=== PATIENT | female | born 1950 | race Caucasian/White ===

== ENCOUNTER 2019-12-15 15:24 | Observation (INO) | payer MEDICARE, OTHER ==
[~2019-12-15] VITALS: Ht 162.6 cm; Wt 68.0 kg
--- NOTE | 2019-12-15 15:48 | Emergency Department Note ---
History of Present Illnes History of Present Illness Chief Complaint: Sepsis History of Present Illness This is a 69 year old female . Past Medical/Family History Physician Review I have reviewed the patient's past medical and family history. Any updates have been documented here. Review of Systems Review of Systems Constitutional: Reports weakness EENTM: Reports no symptoms Cardiovascular: Reports no symptoms Respiratory: Reports no symptoms Gastrointestinal: Reports diarrhea Genitourinary: Reports no symptoms Musculoskeletal: Reports no symptoms Integumentary: Reports no symptoms Neurological: Reports no symptoms Psychological: Reports no symptoms Endocrine: Reports no symptoms Hematological/Lymphatic: Reports no symptoms Physical Exam Related Data Allergies: Coded Allergies: Penicillins (Verified Allergy, Severe, 12/15/19) Sulfa (Sulfonamide Antibiotics) (Verified Allergy, Severe, 12/15/19) Physical Exam CONSTITUTIONAL HENT EYES NECK PULMONARY CARDIOVASCULAR GASTROINTESTINAL GENITOURINARY SKIN MUSCULOSKELETAL NEUROLOGICAL PSYCHOLOGICAL Results Laboratory Lab results reviewed: Yes Laboratory comments Laboratory Tests Test 12/15/19 18:49 12/15/19 15:55 Lactic Acid Level 1.9 mmol/L (0.5-2.0) White Blood Count 8.97 x10e3/uL (4.8-10.8) Red Blood Count 4.68 x10e6/uL (3.6-5.1) Hemoglobin 15.2 g/dL (12.0-16.0) Hematocrit 44.5 % (34.2-44.1) Mean Corpuscular Volume 95.1 fL (81-99) Mean Corpuscular Hemoglobin 32.5 pg (28-32) Mean Corpuscular Hemoglobin Concent 34.2 g/dL (31-35) Red Cell Distribution Width 13.9 % (11.7-14.4) Platelet Count 243 x10e3/uL (140-360) Neutrophils (%) (Auto) 75.0 % (38.7-80.0) Lymphocytes (%) (Auto) 17.9 % (18.0-39.1) Monocytes (%) (Auto) 6.0 % (4.4-11.3) Eosinophils (%) (Auto) 0.1 % (0.0-6.0) Basophils (%) (Auto) 0.2 % (0.0-1.0) Neutrophils # (Auto) 6.7 (2.1-6.9) Lymphocytes # (Auto) 1.6 (1.0-3.2) Monocytes # (Auto) 0.5 (0.2-0.8) Eosinophils # (Auto) 0.0 (0.0-0.4) Basophils # (Auto) 0.0 (0.0-0.1) Absolute Immature Granulocyte (auto 0.07 x10e3/uL (0-0.1) Sodium Level 131 mmol/L (136-145) Potassium Level 4.2 mmol/L (3.5-5.1) Chloride Level 97 mmol/L (98-107) Carbon Dioxide Level 18 mmol/L (22-29) Anion Gap 20.2 mmol/L (8-16) Blood Urea Nitrogen 34 mg/dL (7-26) Creatinine 2.27 mg/dL (0.57-1.11) Estimat Glomerular Filtration Rate 21 ML/MIN (60-) BUN/Creatinine Ratio 15 (6-25) Glucose Level 143 mg/dL (74-118) Calcium Level 10.0 mg/dL (8.4-10.2) Total Bilirubin 0.5 mg/dL (0.2-1.2) Aspartate Amino Transf (AST/SGOT) 11 IU/L (5-34) Alanine Aminotransferase (ALT/SGPT) 11 IU/L (0-55) Alkaline Phosphatase 56 IU/L (40-150) Creatine Kinase 13 IU/L (29-168) Creatine Kinase MB 1.00 ng/mL (0-5.0) Troponin I 0.003 ng/mL (0-0.300) Total Protein 7.1 g/dL (6.5-8.1) Albumin 3.2 g/dL (3.5-5.0) Globulin 3.9 g/dL (2.3-3.5) Albumin/Globulin Ratio 0.8 (0.8-2.0) Lipase 21 U/L (8-78) Ethyl Alcohol Level < 10.0 mg/dL (0.0-10.0) Imaging Imaging results reviewed: Yes Impressions [place] [id number] Patient Name: DESHAUN SHELLEY MR #: [id number] : 1950 Age/Sex: 69/F Req #: [id number] Adm Physician: Ordered by: SAMIA HOANG DO Report #: [id number] Location: ER Room/Bed: Procedure: [id number] DX/CHEST SINGLE (PORTABLE) Exam Date: 12/15/19 Exam Time: 1500 REPORT STATUS: Signed EXAM: CHEST SINGLE (PORTABLE) DATE: 12/15/2019 3:00 PM INDICATION: Sepsis, weakness COMPARISON: None FINDINGS: The trachea is midline. The lungs are symmetrically expanded without evidence for large focal consolidation, pneumothorax, or significant pleural effusion. The cardiomediastinal silhouette and pulmonary vasculature are within normal limits. Mild atherosclerotic calcifications are noted within the aortic arch. No acute osseous abnormality is identified. The surrounding soft tissues are unremarkable. IMPRESSION: No acute cardiopulmonary process identified. Signed by: Dr. Stef Bob MD on 12/15/2019 5:06 PM Dictated By: STEF BOB MD 05 Transcribed By: INÉS on 12/15/191705 COPY TO: SAMIA HOANG DO~ Assessment & Plan Assessment & Plan Final Impression: (1) Renal insufficiency (2) Hypotension SAMIA HOANG DO Dec 15, 2019 15:48
[2019-12-15 16:05] LABS: BASOPHILS % 0.2 % (0.0-1.0); EOSINOPHILS % 0.1 % (0.0-6.0); HEMATOCRIT 44.5 % (34.2-44.1); HEMOGLOBIN 15.2 g/dL (12.0-16.0); LYMPHOCYTES # (AUTO) 1.6 (1.0-3.2); LYMPHOCYTES % 17.9 % (18.0-39.1); MEAN CORPUSCULAR HEMOGLOBIN 32.5 pg (28-32); MEAN CORPUSCULAR HGB CONC 34.2 g/dL (31-35); MEAN CORPUSCULAR VOLUME 95.1 fL (81-99); MONOCYTES # (AUTO) 0.5 (0.2-0.8); NEUTROPHILS # (AUTO) 6.7 (2.1-6.9); PLATELET COUNT 243 x10e3/uL (140-360); RED BLOOD COUNT 4.68 x10e6/uL (3.6-5.1); RED CELL DISTRIBUTION WIDTH 13.9 % (11.7-14.4)
[2019-12-15 16:25] LABS: ALBUMIN 3.2 g/dL (3.5-5.0); ALBUMIN/GLOBULIN RATIO 0.8 (0.8-2.0); ANION GAP 20.2 mmol/L (8-16); CREATININE, SERUM 2.27 mg/dL (0.57-1.11); POTASSIUM 4.2 mmol/L (3.5-5.1)
[2019-12-15] MEDS ORDERED: LEVOFLOXACIN 750MG/D5W 150ML 150 ML IV SCH (16:30)
[2019-12-15 16:54] LABS: LIPASE 21 U/L (8-78)
--- NOTE | 2019-12-15 17:10 | Diagnostic Imaging Report ---
EXAM: CHEST SINGLE (PORTABLE) DATE: 12/15/2019 3:00 PM INDICATION: Sepsis, weakness COMPARISON: None FINDINGS: The trachea is midline. The lungs are symmetrically expanded without evidence for large focal consolidation, pneumothorax, or significant pleural effusion. The cardiomediastinal silhouette and pulmonary vasculature are within normal limits. Mild atherosclerotic calcifications are noted within the aortic arch. No acute osseous abnormality is identified. The surrounding soft tissues are unremarkable. IMPRESSION: No acute cardiopulmonary process identified. Signed by: Dr. Stef Bob MD on 12/15/2019 5:06 PM
[2019-12-15] MEDS ORDERED: SODIUM CHLORIDE 0.9% 1000ML 1,000 ML IV STA (18:44)
[2019-12-15] MEDS ORDERED: SODIUM CHLORIDE 0.9% 1000ML 1,000 ML ONE (18:51)
[2019-12-15] MEDS: SODIUM CHLORIDE 0.9% 1000ML 1,000 ML IV SCH (22:56)
[2019-12-16] VITALS (8 sets, daily range): BP systolic 98–109; BP diastolic 64–86
--- NOTE | 2019-12-16 03:55 | NUR ---
Patient received via stretcher from ER. AAO x 3. Patient had no complaints of pain. Respirations even and non-labored. Admission history obtained. Initial physical assessment performed. Safety measures implemented. IVF infusing at 125 cc/hr. Patient instructed to call for assistance when needed. Call light within reach.
[2019-12-16] MEDS: SODIUM CHLORIDE 0.9% 1000ML 1,000 ML IV SCH ×2 (05:38→14:37)
--- NOTE | 2019-12-16 06:00 | NUR ---
A message was left on Dr. Teague's voicemail regarding "Routine Consult". Awaiting call back.
[2019-12-16 06:54] LABS: BASOPHILS % 0.3 % (0.0-1.0); EOSINOPHILS % 0.1 % (0.0-6.0); HEMATOCRIT 38.9 % (34.2-44.1); HEMOGLOBIN 13.1 g/dL (12.0-16.0); LYMPHOCYTES # (AUTO) 0.9 (1.0-3.2); LYMPHOCYTES % 12.3 % (18.0-39.1); MEAN CORPUSCULAR HEMOGLOBIN 32.3 pg (28-32); MEAN CORPUSCULAR HGB CONC 33.7 g/dL (31-35); MEAN CORPUSCULAR VOLUME 95.8 fL (81-99); MONOCYTES # (AUTO) 0.8 (0.2-0.8); NEUTROPHILS # (AUTO) 5.8 (2.1-6.9); NEUTROPHILS % 76.8 % (38.7-80.0); PLATELET COUNT 188 x10e3/uL (140-360); RED BLOOD COUNT 4.06 x10e6/uL (3.6-5.1); RED CELL DISTRIBUTION WIDTH 13.6 % (11.7-14.4)
--- NOTE | 2019-12-16 07:00 | NUR ---
Walking rounds done. Patient resting comfortably. BSSR given to oncoming nurse regarding patient's status.
[2019-12-16 07:15] LABS: ALBUMIN 2.6 g/dL (3.5-5.0); ALBUMIN/GLOBULIN RATIO 0.9 (0.8-2.0); ANION GAP 15.2 mmol/L (8-16); CALCIUM 8.4 mg/dL (8.4-10.2); CREATININE, SERUM 1.45 mg/dL (0.57-1.11); POTASSIUM 3.2 mmol/L (3.5-5.1)
[2019-12-16] MEDS ORDERED: ONDANSETRON HCL INJ 2MG/ML 2ML 2 MG/ML VIAL IV PRN (08:30)
[2019-12-16] MEDS ORDERED: POTASSIUM BICARBONATE/CIT AC 20 MEQ TABLET.EFF PO SCH (09:30)
[2019-12-16] MEDS: FAMOTIDINE 20 MG/2 ML VIAL IV SCH (09:30)
[2019-12-16] MEDS ORDERED: LORAZEPAM INJ 2 MG/ML VIAL IV PRN (11:30)
[2019-12-16] MEDS ORDERED: ALBUTEROL/IPRATROPIUM 3 ML NEB NEB PRN (11:45)
[2019-12-16] MEDS ORDERED: DIATRIZOATE MEGL/DIATRIZOA SOD 30 ML BTL PO ONE (14:05)
[2019-12-16] MEDS ORDERED: POTASSIUM CHLORIDE 20MEQ/100ML 100 ML IV ONE (15:45)
--- NOTE | 2019-12-16 15:47 | NUR ---
Nutrition Intervention Note RD Recommendation(s) for Physician: -Recommend regular diet -Ensure Enlive BID for added nutrition -The patient meets criteria for unspecified SEVERE protein-calorie malnutrition. Plan of Care: RD following, monitoring for tolerance and adequacy, oral supplement recommendation Nutrition reason for involvement: Nutrition Risk Trigger (MST 3) RD Assessment (12/16/19) Pt is a 69 year old female admitted with hypotension and renal insufficiency. Pt reports a decreased appetite with < 50% meal intake over the past couple of weeks (< 1 month). Pt also stated she had unintentionally lost weight and had weighed 160 lbs 3 weeks ago. Pt currently weighs 150 lbs. This would be a 6% weight loss in ~ 1 month which is considered significant weight loss. No chewing/swallowing issues. Recommend Ensure Enlive BID for added nutrition. Will continue to monitor. Principal Problems/Diagnoses: hypotension, renal insufficiency PMH: COPD, emphysema, alcohol abuse, hysterectomy (provided by RN there is no H/P in chart at this time) GI: flat, soft, abdomen Skin: intact Labs: (12/16/19) Na 134, K 3.2, Cr 1.45, Glu 95, Ca 8.4 Meds: NaCl, levofloxacin, heparin, thiamine, folic acid, zofran, pepcid Ht: 64 inches Wt: 150 lbs BMI: 25.7 kg/m2 IBW: 120 lbs Malnutrition Evaluation (12/16/19) The patient meets criteria for unspecified SEVERE protein-calorie malnutrition. Energy intake: <50% of estimated energy requirements for >5 days Weight loss: >5% in 1 month Fat loss: no loss identified per observation Muscle loss: no loss identified per observation Supporting Evidence: Fluid accumulation: unable to evaluate Functional Status: unable to evaluate Nutrition Prescription (Diet Order): cardiac Estimated Nutritional Needs: 6825-8966 calories/day (18-20 kcal/kg CBW) 68-103 g protein/day (1-1.5 g pro/kg CBW) Diet Adequacy: Not meeting calorie needs, Not meeting protein needs Tolerance: Tolerance pending Diet Education Needs Assessment: Diet education is not indicated Nutrition Care Level: moderate Nutrition Diagnosis: Malnutrition related to h/o inadequate energy intake as evidenced by pt meeting < 50% of estimated energy needs for > 5 days and >5% weight loss in 1 month. Goal: Patient will meet 75-100% of estimated needs by follow up Progress: N/A Interventions: -General healthful diet, Commercial beverage, Recommended Modifications Monitoring/Evaluation: -Total energy intake, Total protein intake, , Liquid supplement, Weight change Signed: Sully Parks RD, LD
--- NOTE | 2019-12-16 16:14 | NUR ---
Transported patient for CT scan at this time.
--- NOTE | 2019-12-16 16:38 | NUR ---
Patient is back from CT.
[2019-12-16] MEDS: LACTATED RINGER'S 1,000 ML INJ SCH (16:54)
[2019-12-16 17:06] LABS: CLARITY,URINE CLEAR (CLEAR); COLOR,URINE YELLOW (YELLOW)
--- NOTE | 2019-12-16 17:06 | Diagnostic Imaging Report ---
EXAM: CT Abdomen and Pelvis WITHOUT intravenous contrast INDICATION: Abdominal pain COMPARISON: None. TECHNIQUE: Abdomen and pelvis were scanned utilizing a multidetector helical scanner from the lung base to the pubic symphysis without administration of IV contrast. Coronal and sagittal reformations were obtained. IV CONTRAST: None ORAL CONTRAST: Gastrografin COMPLICATIONS: None RADIATION DOSE: Total DLP: 705 mGy*cm Dose modulation, iterative reconstruction, and/or weight based adjustment of the mA/kV was utilized to reduce the radiation dose to as low as reasonably achievable. FINDINGS: LOWER THORAX: Centrilobular emphysema and increased peripheral interstitial opacities. HEPATOBILIARY: No focal liver lesion. Hypodensity adjacent to the falciform ligament and gallbladder fossa most likely represents focal fat. SPLEEN: No splenomegaly. PANCREAS: No focal masses or ductal dilatation. ADRENALS: Bilateral adrenal gland thickening without focal nodule. KIDNEYS/URETERS: No hydronephrosis, stones, or solid mass lesions. PELVIC ORGANS/BLADDER: Distended bladder. Status post hysterectomy. PERITONEUM / RETROPERITONEUM: No free air or fluid. LYMPH NODES: No lymphadenopathy. VESSELS: Heavy diffuse atherosclerotic calcifications of the nonaneurysmal abdominal aorta and major branches. GI TRACT: Diverticulosis without CT evidence of diverticulitis. No abnormal bowel thickening. No bowel obstruction. Normal appendix. BONES AND SOFT TISSUES: No acute osseous injury. IMPRESSION: No acute findings in the abdomen or pelvis to explain patient's abdominal pain. Diverticulosis without CT evidence of diverticulitis. Diffuse atherosclerotic calcifications including of the coronary arteries. Signed by: Bonnie Clement MD on 12/16/2019 5:03 PM
[2019-12-16 17:07] LABS: AMPHETAMINES SCREEN,URINE NEGATIVE (NEGATIVE); BENZODIAZEPINES SCREEN,URINE NEGATIVE (NEGATIVE); BILIRUBIN,URINE NEGATIVE (NEGATIVE); KETONES,URINE NEGATIVE (NEGATIVE); LEUKOCYTE ESTERASE ,URINE NEGATIVE (NEGATIVE); NITRITE,URINE NEGATIVE (NEGATIVE); PHENCYCLIDINE SCREEN,URINE NEGATIVE (NEGATIVE); PROTEIN,URINE DIPSTICK NEGATIVE (NEGATIVE); URINE UROBILINOGEN 0.2 mg/dL (0.2 - 1)
[2019-12-16 17:14] LABS: BACTERIA,URINE FEW /HPF; EPITHELIAL CELLS,URINE FEW /LPF; RENAL EPITHELIAL CELLS,URINE RARE
--- NOTE | 2019-12-16 18:44 | History and Physical ---
PRIMARY CARE PHYSICIAN: Tony Curiel MD CHIEF COMPLAINT: Generalized weakness HISTORY OF PRESENT ILLNESS: This is a 69-year-old female with past medical history of hypertension and COPD, who presented to the ED with complaints of generalized weakness, nausea, vomiting, diarrhea since 2-3 weeks. She denies any chest pain, fever, chills, dysuria, hematuria or melena. She denies any abdominal pain or palpitations. She reports has noticed that she gets winded even walking to her bathroom, she also reports losing greater than 10 to 20 pounds within the past month or two. She reports that she drinks rum and coke daily and smokes one pack of cigarettes a day. She reports last drink was about a week ago. Chest x-ray was negative for acute processes. Sodium was 131, creatinine 2.27 and BUN 34. She was started on IV fluids and admitted for further evaluation. PAST MEDICAL HISTORY: 1. Hypertension. 2. COPD. PAST SURGICAL HISTORY: Reports hysterectomy. FAMILY MEDICAL HISTORY: Reports father has diabetes and mother . SOCIAL HISTORY: She reports smoking 1 pack a day and drinks rum and coke on a daily basis, could not quantify how much and also uses marijuana occasionally. ALLERGIES: SHE IS ALLERGIC TO PENICILLIN AND SULFA DRUGS. REVIEW OF SYSTEMS: Twelve system reviewed and negative except as reported in HPI. PHYSICAL EXAMINATION: VITAL SIGNS: Temperature 97.7, pulse is 74, respirations 16, blood pressure 119/75, pulse ox 98% on room air. GENERAL: No acute distress. HEENT: Normocephalic, atraumatic. NECK: Supple. LUNGS: Clear to auscultation. CARDIOVASCULAR: Regular rate and rhythm. GI: Soft and nontender. NEUROLOGIC: Alert, awake, and oriented x3. MUSCULOSKELETAL: Moves all extremities. SKIN: Dry. PSYCH: Calm. LABORATORY DATA: WBC 7.58, hemoglobin 13.1, hematocrit 38.9, platelet 188. Sodium 134, potassium 3.2, BUN is 25, estimated GFR is 36. Lactic acid 0.9, lipase 21, AST 11, ALT 9. Alcohol level is less than 10. Coronavirus PCR in pending. Blood cultures pending. Chest x-ray is negative for acute process. IMPRESSION: 1. Generalized weakness due to severe dehydration. She reports nausea, vomiting, and diarrhea. We will check CT abdomen and pelvis. We will check stool studies. We will continue with IV fluid hydration. 2. Acute kidney injury due to dehydration, improving with IV fluid hydration. Creatinine is now 1.45. Nephrology has been consulted. 3. Hyponatremia. Again due to dehydration. Improving with IV fluid hydration. 4. Hypokalemia. Replaced. 5. Hypertension, currently hypotensive. We will hold BP medications. 6. History of chronic obstructive pulmonary disease without exacerbation. We will order albuterol as needed. 7. Tobacco use. Smokes a pack a day, discussed cessation, refused nicotine patch. 8. Alcohol abuse. Discussed cessation, started on folic acid and thiamine. Ativan p.r.n. 9. Deep vein thrombosis prophylaxis. We will start on heparin. PLAN: To continue with IV fluids, we will have physical therapy evaluate and treat, and we will check CT abdomen and pelvis. Dictated by ELIZABETH Felder Nidia Lora MD MY/MODL /[id number]
[2019-12-16] MEDS: HEPARIN SOD (PORCINE) 5,000 UNIT/ML VIAL SC SCH (21:33)
[2019-12-16] MEDS ORDERED: LEVOFLOXACIN 750MG/D5W 150ML 150 ML IV SCH (22:00)
[2019-12-17] VITALS: BP 104/74
[2019-12-17] MEDS: LACTATED RINGER'S 1,000 ML INJ SCH (01:45)
[2019-12-17 04:00] VITALS: BP 116/89
--- NOTE | 2019-12-17 04:31 | Consultation ---
DATE OF CONSULTATION: Nephrology Consultation REASON FOR CONSULTATION: I have been kindly asked by Dr. Lora to see this patient in regard to renal insufficiency. HISTORY OF PRESENT ILLNESS: Ms. Hamm is a 69-year-old lady, who presented to the hospital because of some diarrhea and also she was feeling weak and discovered at home while she was here. She also had some renal insufficiency. It appears that her admission creatinine was 2.27. She had her sodium of 131. 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 The patient denies really taking any NSAIDs. I specifically asked about ibuprofen and Aleve or Advil and she said she does not take those. PAST MEDICAL HISTORY: The patient has a history it is kind of unknown as above. She says she does not have diabetes or hypertension. REVIEW OF SYSTEMS: As per HPI. PHYSICAL EXAMINATION: VITAL SIGNS: Blood pressure 104/75. Initial blood pressure was 98/75. GENERAL: The patient is in no acute distress. HEENT: No increased JVD. CARDIOVASCULAR: Regular rhythm. LUNGS: Decreased breath sounds. ABDOMEN: Positive bowel sounds. EXTREMITIES: No edema, cyanosis, or clubbing. LABORATORY DATA: Laboratory results initially, sodium was 131, BUN and creatinine were 34 and 2.27. The most recent one is sodium 134, potassium 3.2, chloride 106, bicarbonate 16, BUN and creatinine 25 and 1.4 respectively. IMPRESSION: 1. Acute kidney injury. 2. Probable chronic kidney disease. 3. Hypokalemia. 4. Hyponatremia. PLAN: At the present time, the patient's renal function is actually improving. She is getting normal saline at 125 mL an hour. We will continue this. I will switch her IV fluid to lactated Ringer this is because she has actually developed probable non-anion gap acidosis secondary to a chloride load of the normal saline. I will go ahead and replace the potassium as well. I will switch her IV fluids to lactated Ringer at an 80 mL an hour. We will continue the IV fluids. I will follow the patient with you. Thank you for the consultation. MD ALICE Lopez/ANTONIO /[id number]
[2019-12-17 05:46] LABS: BASOPHILS % 0.4 % (0.0-1.0); EOSINOPHILS % 0.4 % (0.0-6.0); HEMATOCRIT 39.5 % (34.2-44.1); HEMOGLOBIN 12.9 g/dL (12.0-16.0); LYMPHOCYTES # (AUTO) 1.1 (1.0-3.2); LYMPHOCYTES % 23.2 % (18.0-39.1); MEAN CORPUSCULAR HEMOGLOBIN 32.3 pg (28-32); MEAN CORPUSCULAR HGB CONC 32.7 g/dL (31-35); MEAN CORPUSCULAR VOLUME 98.8 fL (81-99); MONOCYTES # (AUTO) 0.5 (0.2-0.8); MONOCYTES % 10.2 % (4.4-11.3); NEUTROPHILS % 64.9 % (38.7-80.0); RED CELL DISTRIBUTION WIDTH 13.6 % (11.7-14.4)
[2019-12-17 06:05] LABS: ANION GAP 14.5 mmol/L (8-16); CALCIUM 8.2 mg/dL (8.4-10.2); CREATININE, SERUM 1.06 mg/dL (0.57-1.11); POTASSIUM 3.5 mmol/L (3.5-5.1)
[2019-12-17 07:40] VITALS: BP 111/91
[2019-12-17 07:52] LABS: PLATELET COUNT 132 x10e3/uL (140-360); PLATELET ESTIMATE SLIGHTLY DECREASED
[2019-12-17 07:53] LABS: PLATELET MORPHOLOGY COMMENT FEW EDTA CLUMPING; RBC MORPHOLOGY COMMENT NORMAL
[2019-12-17 08:10] VITALS: BP 111/91
[2019-12-17] MEDS: FAMOTIDINE 20 MG/2 ML VIAL IV SCH (08:43)
[2019-12-17] MEDS: HEPARIN SOD (PORCINE) 5,000 UNIT/ML VIAL SC SCH (08:44)
[2019-12-17] MEDS ORDERED: FOLIC ACID 1 MG TAB PO SCH (09:00)
[2019-12-17] MEDS ORDERED: THIAMINE HCL 100 MG TAB PO SCH (09:00)
[2019-12-17] MEDS ORDERED: PEPCID20 MG PO (10:33)
[2019-12-17] MEDS ORDERED: B-1100 MG PO (10:33)
[2019-12-17] MEDS ORDERED: Folic Acid PO (10:33)
--- NOTE | 2019-12-17 11:14 | NUR ---
Received order for home health. Spoke to pt at bedside. Pt is declining home health at this time. States she does not need it.
[2019-12-17 11:47] VITALS: BP 90/76
--- NOTE | 2019-12-17 23:01 | Discharge Summary ---
PCP: Dr. Tony Curiel. FINAL DISCHARGE DIAGNOSES: 1. Generalized weakness due to severe dehydration. 2. Acute kidney injury due to dehydration. 3. Hyponatremia. 4. Hypokalemia. 5. Hypertension, now hypotensive. 6. History of chronic obstructive pulmonary disease. 7. Tobacco and alcohol abuse. CONSULTANTS: Dr. Peters with Nephrology. PROCEDURES: None. HISTORY: Per HPI. HOSPITAL COURSE: This is a 69-year-old female with past medical history of hypertension and COPD, presented to the ER with complaints of generalized weakness, nausea, vomiting, and diarrhea for the past few weeks. Upon arrival, she was noted to be severely dehydrated with sodium of 131, creatinine of 2.2, BUN of 34. She was started on IV fluid hydration, Nephrology was consulted and changed her fluids to lactated Ringer's. CT of the abdomen and pelvis was unremarkable for acute process. Chest x-ray with no acute cardiopulmonary process. She was started on a diet, Physical Therapy got her up with walking, she was able to walk over 100 feet with a walker and minimal assist. She remained afebrile, blood cultures negative, tolerating diet. No nausea, vomiting, or diarrhea reported. Labs are improved today, we will discharge home to follow up with PCP in 1 week. She was advised to stop taking her blood pressure medications as her blood pressure is still on the low side. She verbalizes understanding. She was also advised on alcohol and smoking cessation, verbalizes understanding. PHYSICAL EXAMINATION: VITAL SIGNS: Temperature 97.3, pulse is 85, respirations 18, blood pressure 90/76, and pulse ox is 99% on air. GENERAL: No acute distress. HEENT: Normocephalic and atraumatic. LUNGS: Clear to auscultation. CARDIOVASCULAR: Regular rate and rhythm. S1 and S2 heard. GI: Soft and nontender. NEUROLOGIC: Alert, awake, and oriented x3. MUSCULOSKELETAL: Moves all extremities. SKIN: Dry. CONDITION AT DISCHARGE: Improved and stable. DISCHARGE MEDICATIONS: Please see medication reconciliation list. FOLLOWUP: Follow up with PCP in 1 week. TIME SPENT: Total discharge time is 32 minutes. Dictated by ELIZABETH Felder Nidia Lora MD MY/MODL /[id number] cc: Tony Curiel Jr, MD
== END 2019-12-17 13:08 | disposition home or self-care (01) ==
LOC: ER 17:15 → ERHOLD 21:00 → MED/SURG2 12-16 02:52
PROVIDERS: ADMIT Internal Medicine; ATTEND Internal Medicine
DX: E86.0 Dehydration (principal); N17.9 Acute kidney failure, unspecified; I10 Essential (primary) hypertension; F17.200 Nicotine dependence, unspecified, uncomplicated; F10.10 Alcohol abuse, uncomplicated; Z11.59 Encounter for screening for other viral diseases; E87.1 Hypo-osmolality and hyponatremia; E87.6 Hypokalemia; J44.9 Chronic obstructive pulmonary disease, unspecified
CPT/HCPCS: 36415 ×3; 71045; 74176; 80048; 80053 ×2; 80307; 80320; 81001; 82550; 82553; 83605 ×2; 83690; 84484; 85025 ×3; 87040; 87635; 93005; 97116; 97161; 99284; G0378 ×3; J1644 ×2; J3411; J3480; J7030 ×2; J7121